=== PATIENT | female | born 1950 | race Caucasian/White ===

== ENCOUNTER → 2017-10-19 | Outpatient (CLI) | payer OTHER ==
[~2017-10-19] MED LIST: ASPI81EC PO; ATOR40TA PO; CEFP500 PO; CLOP75 PO; FLUT.05NI; GABA300 PO; GLIP10ER PO; IBUP800 PO; INSULANPEN; JANUMET PO; JARDIANCE25 MG; LEVO750 PO; LISI5 PO; METF850 PO; METO25 PO; NASAL DECONGESTANT; PIOG15 PO
== END | disposition home or self-care (01) ==
LOC: LAB SHORT 09:14 → LAB 09:14
DX: E11.49 Type 2 diabetes mellitus with other diabetic neurological complication (principal); L97.509 Non-pressure chronic ulcer of other part of unspecified foot with unspecified severity
CPT/HCPCS: 87070; 87205